=== PATIENT | female | born 1995 | race Caucasian/White ===

== ENCOUNTER 2017-08-29 10:59 | Emergency (ER) | payer OTHER ==
--- NOTE | 2017-08-29 12:39 | ER Document Report ---
HPI - HPI Pain Level: 4 Context: 21 yo female 15wk c/o flu like symptoms x 2 days. chills, body aches, cough, nausea. denies abdominal pain, vaginal bleeding or other related complaints Associated Symptoms: Body/muscle aches, Chills, Nonproductive cough, Earache, Nausea, Weakness. denies: Vomiting, Shortness of breath Exacerbated by: Denies Relieved by: Denies Similar symptoms previously: No Recently seen / treated by doctor: No Past Medical History - General Information source: Patient - Social History Smoking Status: Never Smoker Frequency of alcohol use: None Drug Abuse: None Lives with: Family Family History: Reviewed & Not Pertinent - Medical History Medical History: Negative Vertical Provider Document - CONSTITUTIONAL Agree With Documented VS: Yes Exam Limitations: No Limitations - INFECTION CONTROL TRAVEL OUTSIDE OF THE [place] IN LAST 30 DAYS: No - HEENT HEENT: Atraumatic, PERRLA - NECK Neck: Normal Inspection, Supple - RESPIRATORY Respiratory: Breath Sounds Normal, No Respiratory Distress O2 Sat by Pulse Oximetry: 100 - GI/ABDOMEN Gastrointestinal: Abdomen Soft, Abdomen Non-Tender - MUSCULOSKELETAL/EXTREMETIES Musculoskeletal/Extremeties: MAEW - NEURO Level of Consciousness: Awake, Alert, Appropriate - DERM Integumentary: Warm, Dry, No Rash Course - Re-evaluation Re-evalutation: 08/29/17 12:43 H&P c/w viral illlness with no signs of sepsis or respiratory distress. will treat with course of Tamiflu and symptomatic support. pt stable for discharge and agreeable with plan - Vital Signs Vital signs: Temp Pulse Resp BP Pulse Ox 98.8 F 119 H 20 125/61 100 08/29/17 11:25 08/29/17 11:25 08/29/17 11:25 08/29/17 11:25 08/29/17 11:25 Discharge - Discharge Clinical Impression: Flu-like symptoms Condition: Stable Disposition: HOME, SELF-CARE Instructions: Antinausea Medication ([facility]) Additional Instructions: Tamiflu as prescribed rest increase hydration anti nausea medication as prescribed May take OTC Mucinex, Delsym for cough control social isolation while sick good hand washing clorox wipes to common surfaces followup with your OB tomorrow Prescriptions: Oseltamivir Phosphate [Tamiflu 75 mg Capsule] 75 mg PO BID #10 capsule Promethazine HCl [Phenergan 25 mg Tablet] 25 mg PO Q6H PRN #15 tablet PRN Reason:
[2017-08-29 13:33] VITALS: BP 117/60
== END 2017-08-29 13:35 | disposition home or self-care (01) ==
LOC: ER 10:59
DX: O26.92 Pregnancy related conditions, unspecified, second trimester (principal); M79.1 Myalgia; R05 Cough; R11.0 Nausea; Z3A.15 15 weeks gestation of pregnancy
CPT/HCPCS: 99283

== ENCOUNTER 2018-03-07 09:48 | Emergency (ER) | payer OTHER ==
[2018-03-07 10:00] VITALS: BP 134/83
--- NOTE | 2018-03-07 10:53 | ER Document Report ---
ED General - General Chief Complaint: Blood Pressure Problem Stated Complaint: BLOOD PRESSURE ISSUE Time Seen by Provider: 03/07/18 10:41 Notes: Chief complaint: Rash, right arm numbness, elevated blood pressure History of complain:( obtained from----patient) 22 years old female 13 days , induced for preeclampsia, discharge blood pressure was 140 , it gradually came down to 130/80. Having itchy sensation and pimple-like rash over the left side of the neck and lower back. Otherwise denies any headache blurring of vision focal weakness numbness tingling sensation. No constitutional symptoms Onset: As above Duration: As above Severity: Mild Quality: Itchy Context: Unknown Exacerbating factor and relieving factors: Unknown REVIEW OF SYSTEMS: CONSTITUTIONAL : Denies fever, chills, or sweats. Denies recent illness. EENT: Denies eye, ear, throat, or mouth pain or symptoms. Denies nasal or sinus congestion or discharge. Denies throat, tongue, or mouth swelling or difficulty swallowing. CARDIOVASCULAR: Denies chest pain. Denies palpitations or racing or irregular heart beat. Denies ankle edema. RESPIRATORY: Denies cough, cold, or chest congestion. Denies shortness of breath, difficulty breathing, or wheezing. GASTROINTESTINAL: Denies distention. Denies nausea, vomiting, or diarrhea. Denies blood in vomitus, stools, or per rectum. Denies black, tarry stools. Denies constipation. GENITOURINARY: Denies difficulty urinating, painful urination, burning, frequency, blood in urine, or discharge. FEMALE GENITOURINARY: Denies vaginal bleeding, heavy or abnormal periods, irregular periods. Denies vaginal discharge or odor. MUSCULOSKELETAL: Denies back or neck pain or stiffness. Denies joint pain or swelling. SKIN: Denies rash, lesions or sores. HEMATOLOGIC : Denies easy bruising or bleeding. LYMPHATIC: Denies swollen, enlarged glands. NEUROLOGICAL: Denies confusion or altered mental status. Denies passing out or loss of consciousness. Denies dizziness or lightheadedness. Denies headache. Denies weakness or paralysis or loss of use of either side. Denies problems with gait or speech. Denies sensory loss, numbness, or tingling. Denies seizures. PSYCHIATRIC: Denies anxiety or stress. Denies depression, suicidal ideation, or homicidal ideation. ALL OTHER SYSTEMS REVIEWED AND NEGATIVE. PHYSICAL EXAMINATION: GENERAL: Well-appearing, well-nourished and in no acute distress. HEAD: Atraumatic, normocephalic. EYES: Pupils equal round and reactive to light, extraocular movements intact, conjunctiva are normal. ENT: Nares patent, oropharynx clear without exudates. Moist mucous membranes. NECK: Normal range of motion, supple without lymphadenopathy LUNGS: Breath sounds clear to auscultation bilaterally and equal. No wheezes rales or rhonchi. HEART: Regular rate and rhythm without murmurs ABDOMEN: Soft, nontender, nondistended abdomen. No guarding, no rebound. No masses appreciated. Examination of genitals-deferred Musculoskeletal: Normal range of motion, no pitting or edema. No cyanosis. NEUROLOGICAL: Cranial nerves grossly intact. Normal speech, normal gait. Normal sensory, motor exams PSYCH: Normal mood, normal affect. SKIN: Multiple pimple-like lesions noted over the left side of the neck and lower back. Dictation was performed using [employer] voice recognition software TRAVEL OUTSIDE OF THE [place] IN LAST 30 DAYS: No - HPI Notes: Dictated - Related Data Allergies/Adverse Reactions: No Known Allergies Allergy (Unverified 08/29/17 11:05) Past Medical History - Social History Smoking Status: Never Smoker Chew tobacco use (# tins/day): No Frequency of alcohol use: Occasional Lives with: Family Family History: Reviewed & Not Pertinent Patient has suicidal ideation: No Patient has homicidal ideation: No Renal/ Medical History: Denies: Hx Peritoneal Dialysis Review of Systems - Review of Systems Notes: Dictated Physical Exam - Vital signs Vitals: Temp Pulse Resp BP Pulse Ox 98.3 F 83 20 134/83 H 99 03/07/18 09:58 03/07/18 09:58 03/07/18 09:58 03/07/18 09:58 03/07/18 09:58 - Notes Notes: Dictated Course - Vital Signs Vital signs: Temp Pulse Resp BP Pulse Ox 98.3 F 83 20 134/83 H 99 03/07/18 09:58 03/07/18 09:58 03/07/18 09:58 03/07/18 09:58 03/07/18 09:58 - Laboratory Result Diagrams: 03/07/18 11:02 Laboratory results interpreted by me: 03/07/18 03/07/18 11:02 11:25 Eosinophils % 7.8 H ESR 31 H Urine Protein 30 H Urine Urobilinogen 2.0 H Ur Leukocyte Esterase LARGE H Urine Ascorbic Acid 40 H Discharge - Discharge Clinical Impression: Itching UTI (urinary tract infection) Qualifiers: Urinary tract infection type: acute cystitis Hematuria presence: without hematuria Qualified Code(s): N30.00 - Acute cystitis without hematuria Acne Qualifiers: Acne type: other acne Qualified Code(s): L70.8 - Other acne Condition: Fair Disposition: HOME, SELF-CARE Instructions: Urinary Tract Infection, Child ([facility]), Acne ([facility]) Prescriptions: Cephalexin Monohydrate [Keflex 500 mg Capsule] 500 mg PO Q6H 5 Days capsule Mupirocin [Bactroban 2% Ointment 22 gm] 22 applic TP TID #1 tube
[2018-03-07 11:21] LABS: ABSOLUTE BASOPHILS # (AUTO) 0.1 10^3/uL (0.0-0.2); ABSOLUTE EOSINOPHILS # (AUTO) 0.6 10^3/uL (0.0-0.6); ABSOLUTE LYMPHOCYTES (AUTO) 1.5 10^3/uL (0.5-4.7); ABSOLUTE MONOCYTES (AUTO) 0.3 10^3/uL (0.1-1.4); ABSOLUTE NEUT (AUTO) 4.8 10^3/uL (1.7-8.2); BASOPHILS % (AUTO) 1.2 % (0-2); EOSINOPHILS % (AUTO) 7.8 % (0-6); HEMATOCRIT 42.1 % (36.0-47.0); HEMOGLOBIN 14.3 g/dL (12.0-15.5); MEAN CORPUSCULAR HEMOGLOBIN 27.5 pg (27.0-33.4); MEAN CORPUSCULAR VOLUME 81 fl (80-97); MONOCYTES % (AUTO) 4.4 % (3-13); PLATELET COUNT 354 10^3/uL (150-450); RED CELL DISTRIBUTION WIDTH 13.3 % (11.5-14.0); SEGMENTED NEUTROPHILS % (AUTO) 65.6 % (42-78); TOTAL CELLS COUNTED % (AUTO) 100 %; WHITE BLOOD COUNT 7.3 10^3/uL (4.0-10.5)
[2018-03-07 11:50] LABS: APPEARANCE,URINE CLOUDY; BILIRUBIN,URINE NEGATIVE (NEGATIVE); GLUCOSE, URINE NEGATIVE (NEGATIVE); KETONES,URINE NEGATIVE (NEGATIVE); LEUKOCYTE ESTERASE,URINE LARGE (NEGATIVE); NITRITE,URINE NEGATIVE (NEGATIVE); PROTEIN,URINE 30 mg/dL (NEGATIVE); URINE SPECIFIC GRAVITY 1.027
[2018-03-07 11:52] LABS: COLOR,URINE YELLOW
[2018-03-07 12:01] LABS: ERYTHROCYTE SEDIMENTATION RATE 31 mm/hr (0-20)
== END 2018-03-07 12:10 | disposition home or self-care (01) ==
LOC: ER 09:48
DX: O86.20 Urinary tract infection following delivery, unspecified (principal); L29.9 Pruritus, unspecified; L70.8 Other acne; R03.0 Elevated blood-pressure reading, without diagnosis of hypertension; R20.0 Anesthesia of skin
CPT/HCPCS: 36415; 81001; 85025; 85652; 99283

== ENCOUNTER 2018-03-09 17:01 | Emergency (ER) | payer OTHER ==
[2018-03-09 17:09] VITALS: BP 142/88
--- NOTE | 2018-03-09 17:24 | ER Document Report ---
ED Medical Screen (RME) - General Chief Complaint: OB Problem (>20wk) Stated Complaint: ITCHING/HAND NUMBNESS Time Seen by Provider: 03/09/18 17:22 Mode of Arrival: Ambulatory Information source: Patient Notes: This is a 22-year-old well-appearing female 15 days who was induced because of preeclampsia. Patient states towards the end of her she had elevated blood pressure and a transaminitis. She delivered a healthy girl by ([facility]). She was evaluated a few days ago in the emergency room for an itchy rash and was given topical cream as well as 5 days of Keflex for UTI. Her other medicines include iron and magnesium. She presents with worsening itching as well as rash and intermittent right upper quadrant discomfort. TRAVEL OUTSIDE OF THE [place] IN LAST 30 DAYS: No - Related Data Allergies/Adverse Reactions: No Known Allergies Allergy (Verified 03/09/18 17:03) Past Medical History - Social History Frequency of alcohol use: Occasional Drug Abuse: None Renal/ Medical History: Denies: Hx Peritoneal Dialysis Physical Exam - Vital signs Vitals: Temp Pulse Resp BP Pulse Ox 98.0 F 67 16 142/88 H 99 03/09/18 17:07 03/09/18 17:07 03/09/18 17:07 03/09/18 17:07 03/09/18 17:07 Course - Vital Signs Vital signs: Temp Pulse Resp BP Pulse Ox 98.0 F 67 16 142/88 H 99 03/09/18 17:07 03/09/18 17:07 03/09/18 17:07 03/09/18 17:07 03/09/18 17:07
[2018-03-09 18:09] LABS: ALANINE AMINOTRANSFERASE 29 U/L (9-52); ALBUMIN 4.5 g/dL (3.5-5.0); ALKALINE PHOSPHATASE 124 U/L (38-126); ANION GAP 15 (5-19); ASPARTATE AMINO TRANSFERASE 35 U/L (14-36); BILIRUBIN,DIRECT 0.3 mg/dL (0.0-0.4); BILIRUBIN,TOTAL 0.4 mg/dL (0.2-1.3); BLOOD UREA NITROGEN 17 mg/dL (7-20); CARBON DIOXIDE 26 mmol/L (22-30); CHLORIDE 102 mmol/L (98-107); GLUCOSE 75 mg/dL (75-110); SODIUM 142.5 mmol/L (137-145)
--- NOTE | 2018-03-09 18:39 | RADIOLOGY REPORT (SQ) ---
EXAM DESCRIPTION: U/S ABDOMEN LIMITED W/O DOP COMPLETED DATE/TIME: 03/09/2018 6:20 pm REASON FOR STUDY: ruq ultrasound:ruq pain COMPARISON: None. TECHNIQUE: Dynamic and static grayscale images acquired of the abdomen and recorded on PACS. Additio nal selected color Doppler and spectral images recorded. LIMITATIONS: None. FINDINGS: PANCREAS: No masses. Visualized pancreatic duct normal caliber. LIVER: No masses. Echotexture normal. LIVER VASCULATURE: Normal directional flow of the main portal vein and hepatic veins. GALLBLADDER: No stones. Normal wall thickness. No pericholecystic fluid. ULTRASOUND-DETECTED TAYLOR'S SIGN: Negative. INTRAHEPATIC DUCTS AND COMMON DUCT: CBD and intrahepatic ducts normal caliber. No filling defects. INFERIOR VENA CAVA: Normal flow. AORTA: No aneurysm. RIGHT KIDNEY: Normal size. Normal echogenicity. No solid or suspicious masses. No hydronephrosis. No calcifications. PERITONEAL AND RIGHT PLEURAL SPACE: No ascites or effusions. OTHER: No other significant findings. IMPRESSION: NORMAL RIGHT UPPER QUADRANT ULTRASOUND. TECHNICAL DOCUMENTATION: JOB ID: [id number] [employer]- All Rights Reserved Reading location - IP/workstation name: [email or web address]
[2018-03-09] MEDS ORDERED: CETIRIZINE 10 MG TABLET PO ONE (18:52)
--- NOTE | 2018-03-09 18:59 | ER Document Report ---
ED General - General Chief Complaint: OB Problem (>20wk) Stated Complaint: ITCHING/HAND NUMBNESS Time Seen by Provider: 03/09/18 17:22 Mode of Arrival: Ambulatory Notes: Patient is a 22-year-old female 16 days after being induced for preeclampsia and elevated LFTs who presents complaining of generalized itching. She was seen several days ago for the same, prescribed a topical steroid cream which she reports has provided no relief. She describes it as a migratory area of pruritus with associated raised erythematous lesions to the areas of pruritus. She denies a history of similar symptoms in the past. She denies any shortness of breath, wheezing, vomiting, diarrhea or abdominal cramping. She has not yet seen her primary doctor regarding today's concerns. She has no previous history of allergies. TRAVEL OUTSIDE OF THE [place] IN LAST 30 DAYS: No - Related Data Allergies/Adverse Reactions: No Known Allergies Allergy (Verified 03/09/18 17:03) Past Medical History - General Information source: Patient - Social History Smoking Status: Never Smoker Frequency of alcohol use: Occasional Drug Abuse: None Lives with: Spouse/Significant other Family History: Reviewed & Not Pertinent Patient has suicidal ideation: No Patient has homicidal ideation: No Renal/ Medical History: Denies: Hx Peritoneal Dialysis Review of Systems - Review of Systems Notes: Constitutional: Negative for fever. Positive pruritus HENT: Negative for sore throat. Eyes: Negative for visual changes. Cardiovascular: Negative for chest pain. Respiratory: Negative for shortness of breath. Gastrointestinal: Negative for abdominal pain, vomiting or diarrhea. Genitourinary: Negative for dysuria. Musculoskeletal: Negative for back pain. Skin: Positive for rash. Neurological: Negative for headaches, weakness or numbness. 10 point ROS negative except as marked above and in HPI. Physical Exam - Vital signs Vitals: Temp Pulse Resp BP Pulse Ox 98.0 F 67 16 142/88 H 99 03/09/18 17:07 03/09/18 17:07 03/09/18 17:07 03/09/18 17:07 03/09/18 17:07 Interpretation: Normal Notes: PHYSICAL EXAMINATION: GENERAL: Well-appearing, well-nourished and in no acute distress. HEAD: Atraumatic, normocephalic. EYES: Pupils equal round and reactive to light, extraocular movements intact, sclera anicteric, conjunctiva are normal. ENT: nares patent, oropharynx clear without exudates. Moist mucous membranes. NECK: Normal range of motion, supple without lymphadenopathy LUNGS: Breath sounds clear to auscultation bilaterally and equal. No wheezes rales or rhonchi. HEART: Regular rate and rhythm without murmurs ABDOMEN: Soft, nontender, normoactive bowel sounds. No guarding, no rebound. No masses appreciated. EXTREMITIES: Normal range of motion, no pitting or edema. No cyanosis. NEUROLOGICAL: No focal neurological deficits. Moves all extremities spontaneously and on command. PSYCH: Normal mood, normal affect. SKIN: Warm, Dry, normal turgor, several scattered areas of raised, erythematous lesions on the bilateral antecubital fossae and over her low back. Course - Re-evaluation Re-evalutation: 03/09/18 18:52 Patient presents with intermittent, migratory areas of urticaria that have been ongoing since 1 week . Patient does have several scattered areas of raised, erythematous lesions on the bilateral antecubital fossae and over her low back. She has been using topical steroid cream no symptoms to suggest acute anaphylaxis. No obvious trigger for her symptoms. Prescribed during her most recent visit without any relief. No evidence of cholestasis based on normal LFTs, normal bilirubin level, normal right upper quadrant ultrasound. I will start the patient on antihistamines as she is not breast-feeding no risk of loss of supply. I also prescribed steroids that she can initiate if the cetirizine is not working. I recommended follow-up with allergy and immunology for formal allergy testing if her symptoms do persist. At this time will discharge with return precautions and follow-up recommendations. Verbal discharge instructions given a the bedside and opportunity for questions given. Medication warnings reviewed. Patient is in agreement with this plan and has verbalized understanding of return precautions and the need for primary care follow-up in the next 24-72 hours. - Vital Signs Vital signs: Temp Pulse Resp BP Pulse Ox 98.0 F 67 16 142/88 H 99 03/09/18 17:07 03/09/18 17:07 03/09/18 17:07 03/09/18 17:07 03/09/18 17:07 - Laboratory Result Diagrams: 03/09/18 17:37 Discharge - Discharge Clinical Impression: Itching, Rash and nonspecific skin eruption Disposition: HOME, SELF-CARE Additional Instructions: You were seen today for hives. This can be either allergic, autoimmune, or environmental in origin. You can continue to take cetirizine 10mg up to 3 times daily as needed for itching. If this does not resolve your skin lesions and itching after 2 days, begin the steroids that have been prescribed. IF YOU DEVELOP DIFFICULTY BREATHING, SPREADING OF HIVES, VOMITING, LIGHTHEADEDNESS, IMMEDIATELY AND CALL 911. Please follow-up with your primary care physician in the next 1-2 days. They may wish to consider formal allergy testing to further clarify why you continue to have these symptoms. Your labs and ultrasound are normal today. Prescriptions: Prednisone [Deltasone 20 mg Tablet] 3 tab PO DAILY 5 Days tablet
== END 2018-03-09 19:01 | disposition home or self-care (01) ==
LOC: ER 17:01
DX: O99.73 Diseases of the skin and subcutaneous tissue complicating the puerperium (principal); L50.9 Urticaria, unspecified
CPT/HCPCS: 36415; 76705; 80053; 99284

== ENCOUNTER 2019-01-29 23:31 | Emergency (ER) | payer OTHER ==
--- NOTE | 2019-01-30 00:24 | ER Document Report ---
HPI - HPI Time Seen by Provider: 01/30/19 00:09 Pain Level: 3 Context: Patient is a 23-year-old female that comes to the emergency department for chief complaint of cough for the past 3 to 4 weeks. She states she has had congestion, postnasal drainage, but her cough is significantly worse now. She states she almost coughed until she threw up. She states pain with cough is significantly increased. She denies difficulty breathing, fever/chills. Her daughter had similar symptoms. Patient is taking her daily medications. She denies any past medical history including asthma, denies ever smoking. - REPRODUCTIVE Reproductive: DENIES: : Past Medical History - General Information source: Patient - Social History Smoking Status: Never Smoker Frequency of alcohol use: None Drug Abuse: None Lives with: Family Family History: Reviewed & Not Pertinent - Medical History Medical History: Negative Renal/ Medical History: Denies: Hx Peritoneal Dialysis Surgical Hx: Negative - Immunizations Immunizations up to date: Yes Hx Diphtheria, Pertussis, Tetanus Vaccination: Yes Vertical Provider Document - CONSTITUTIONAL General Appearance: WD/WN, No Apparent Distress - INFECTION CONTROL TRAVEL OUTSIDE OF THE [place] IN LAST 30 DAYS: No - HEENT HEENT: Atraumatic, Normocephalic. negative: Normal ENT Exam - Very mild nasal congestion, small amount of fluid behind the right tympanic membrane, minimal erythema of the posterior pharynx. Normal ENT exam otherwise. - NECK Neck: Normal Inspection. negative: Lymphadenopathy-Left, Lymphadenopathy-Right - RESPIRATORY Respiratory: Breath Sounds Normal, No Respiratory Distress, Other - Frequent cough, however lungs are clear, no tachypnea, no signs of distress - CARDIOVASCULAR Cardiovascular: Regular Rate, Regular Rhythm - GI/ABDOMEN Gastrointestinal: Abdomen Soft, Abdomen Non-Tender - BACK Back: Normal Inspection - MUSCULOSKELETAL/EXTREMETIES Musculoskeletal/Extremeties: MAEW, FROM, Non-Tender - NEURO Level of Consciousness: Awake, Alert, Appropriate Motor/Sensory: No Motor Deficit, No Sensory Deficit - DERM Integumentary: Warm, Dry, No Rash Course - Re-evaluation Re-evalutation: Lungs are clear, no hypoxia. Chest x-ray without acute findings. Physical examination is most consistent with initial upper respiratory virus and now bronchitis. Discussed with patient, discussed options. Provided with tapering prednisone, decongestants/antihistamines, Tessalon. Discussed follow-up and return precautions. Patient states understanding and agreement. Stable at time of discharge. - Vital Signs Vital signs: Temp Pulse Resp BP Pulse Ox 97.9 F 89 18 136/90 H 97 01/29/19 23:42 01/29/19 23:42 01/29/19 23:42 01/29/19 23:42 01/29/19 23:42 Discharge - Discharge Clinical Impression: Cough Upper respiratory infection Qualifiers: URI type: unspecified URI Qualified Code(s): J06.9 - Acute upper respiratory infection, unspecified Condition: Stable Disposition: HOME, SELF-CARE Additional Instructions: Your evaluation is consistent with most likely viral illness initially and now bronchitis (inflammation of the upper airway). The chest x-ray is normal. Your evaluation is reassuring otherwise. I recommend the prednisone as prescribed (avoid carbohydrates while taking or this can cause increased sugars and weight gain), the cetirizine, and the Flonase nasal spray, the Tessalon for cough. Symptoms should gradually resolve. Return if you worsen including difficulty breathing, spiking fever, passing out, or any other concerning symptoms. Prescriptions: Benzonatate [Tessalon [place] 100 mg Capsule] 100 mg PO Q8HP PRN #20 cap PRN Reason: Cetirizine HCl [24Hour Allergy] 10 mg PO DAILY #30 tablet Fluticasone Propionate [Flonase Nasal [place] 50 Mcg/[place] 16 gm] 2 sprays NASL Q12 #1 inhaler Prednisone [Deltasone 10 mg Tablet] 10 mg PO ASDIR PRN #21 tablet PRN Reason:
--- NOTE | 2019-01-30 00:55 | RADIOLOGY REPORT (SQ) ---
EXAM DESCRIPTION: X-ray two view chest. CLINICAL HISTORY: 23 years Female, worsening cough and pain, cough x 4 weeks COMPARISON: None. TECHNIQUE: PA and Lateral views of the chest performed on 01/30/2019 at 12:47 AM FINDINGS: The lungs are well expanded and are clear. The costophrenic sulci are clear. There is no evidence of a pneumothorax. The cardiac silhouette is normal in size. The mediastinal contours are normal. No acute osseous abnormalities are identified. No focal soft tissue abnormalities are identified. IMPRESSION: No evidence of acute intrathoracic disease.
[2019-01-30] MEDS ORDERED: BENZONATATE 100 MG CAPSULE PO ONE (01:11)
[2019-01-30 01:33] VITALS: BP 131/81
== END 2019-01-30 01:33 | disposition home or self-care (01) ==
LOC: ER 23:31
DX: J06.9 Acute upper respiratory infection, unspecified (principal); R11.10 Vomiting, unspecified
CPT/HCPCS: 71046; 99283

== ENCOUNTER 2019-06-14 17:33 | Emergency (ER) | payer OTHER ==
--- NOTE | 2019-06-14 17:52 | ER Document Report ---
ED Medical Screen (RME) - General Chief Complaint: Chest Pressure Stated Complaint: CHEST PRESSURE Time Seen by Provider: 06/14/19 17:49 Mode of Arrival: Ambulatory Information source: Patient Notes: 23-year-old female presented to ED for complaint of chest pain with esophageal pain all the way down to the upper abdomen for 5 days. She states for the first couple days she thought it was just indigestion but the pain is gotten much worse. She states her last menstrual cycle was about a month ago does not know if she is . States she is on control. She states she does not smoke she does drink on the weekends no use of drugs. States her last alcohol was a couple weeks ago. She does occasionally get nauseated but no vomiting she states she is also had some diarrhea the last 3 days. I have greeted and performed a rapid initial assessment of this patient. A comprehensive ED assessment and evaluation of the patient, analysis of test results and completion of medical decision making process will be conducted by an additional ED providers. TRAVEL OUTSIDE OF THE [place] IN LAST 30 DAYS: No - Related Data Allergies/Adverse Reactions: No Known Allergies Allergy (Verified 03/09/18 17:03) Past Medical History Renal/ Medical History: Denies: Hx Peritoneal Dialysis Past Surgical History: Reports: Hx Breast Surgery - Immunizations Immunizations up to date: Yes Hx Diphtheria, Pertussis, Tetanus Vaccination: Yes
--- NOTE | 2019-06-14 18:28 | RADIOLOGY REPORT (SQ) ---
EXAM DESCRIPTION: CHEST 2 VIEWS COMPLETED DATE/TIME: 06/14/2019 6:13 pm REASON FOR STUDY: chest pain/upper abdoment pain nausea diarrhea COMPARISON: 01/30/2019 EXAM PARAMETERS: NUMBER OF VIEWS: two views TECHNIQUE: Digital Frontal and Lateral radiographic views of the chest acquired. RADIATION DOSE: NA LIMITATIONS: none FINDINGS: LUNGS AND PLEURA: No opacities, masses or pneumothorax. No pleural effusion. MEDIASTINUM AND HILAR STRUCTURES: No masses or contour abnormalities. HEART AND VASCULAR STRUCTURES: Heart normal size. No evidence for failure. BONES: No acute findings. HARDWARE: None in the chest. OTHER: No other significant finding. IMPRESSION: No acute abnormality of the lungs. No focal airspace opacity. TECHNICAL DOCUMENTATION: JOB ID: [id number] [employer]- All Rights Reserved Reading location - IP/workstation name: [email or web address]
[2019-06-14 18:39] LABS: ABSOLUTE EOSINOPHILS # (AUTO) 0.2 10^3/uL (0.0-0.6); ABSOLUTE MONOCYTES (AUTO) 0.5 10^3/uL (0.1-1.4); ABSOLUTE NEUT (AUTO) 4.1 10^3/uL (1.7-8.2); BASOPHILS % (AUTO) 0.3 % (0-2); EOSINOPHILS % (AUTO) 3.1 % (0-6); HEMATOCRIT 39.8 % (36.0-47.0); HEMOGLOBIN 13.9 g/dL (12.0-15.5); LYMPHOCYTES % (AUTO) 17.5 % (13-45); MEAN CORPUSCULAR HGB CONC 34.9 g/dL (32.0-36.0); MEAN CORPUSCULAR VOLUME 80 fl (80-97); MONOCYTES % (AUTO) 8.6 % (3-13); PLATELET COUNT 226 10^3/uL (150-450); RED BLOOD COUNT 4.95 10^6/uL (3.72-5.28); RED CELL DISTRIBUTION WIDTH 12.5 % (11.5-14.0); SEGMENTED NEUTROPHILS % (AUTO) 70.5 % (42-78); TOTAL CELLS COUNTED % (AUTO) 100 %; WHITE BLOOD COUNT 5.8 10^3/uL (4.0-10.5)
[2019-06-14] MEDS ORDERED: LIDOCAINE 2% VISCOUS SOLN 20 ML UDCUP PO ONE (18:44)
[2019-06-14] MEDS ORDERED: METOCLOPRAMIDE HCL ORAL SOLN 10 MG/10 ML UDCUP PO ONE (18:44)
[2019-06-14] MEDS ORDERED: MAG HYDROX/AL HYDROX/SIMETH SUSP 30 ML UDCUP PO ONE (18:44)
--- NOTE | 2019-06-14 18:45 | ER Document Report ---
ED General - General Chief Complaint: Chest Pain Stated Complaint: CHEST PRESSURE Time Seen by Provider: 06/14/19 17:49 Primary Care Provider: EUGENIE PADILLA DO [Primary Care Provider] - Follow up in 3-5 days Mode of Arrival: Ambulatory Information source: Patient Notes: 23-year-old female presents emergency department with complaints of chest pain that goes down her esophagus to her upper abdomen for the past 5 days. Reports increased pain when she drinks water or eats food. Denies fever complains of nausea that comes and goes and reports diarrhea once to twice a day for the past couple days. Denies pain with void denies vaginal discharge. Reports she does have some chills. Reports she went to [facility] 2 days ago for the same symptoms. She was prescribed probiotics. She was also instructed she had heartburn. She reports symptoms continued. TRAVEL OUTSIDE OF THE [place] IN LAST 30 DAYS: No - HPI Onset: Other - 5 days Onset/Duration: Persistent Quality of pain: Achy Associated symptoms: Diarrhea, Nausea Exacerbated by: Denies Relieved by: Denies Similar symptoms previously: Yes Recently seen / treated by doctor: Yes - Related Data Allergies/Adverse Reactions: No Known Allergies Allergy (Verified 03/09/18 17:03) Home Medications: control, lexapro Past Medical History - General Information source: Patient Last Menstrual Period: 1 month ago - Social History Smoking Status: Never Smoker Chew tobacco use (# tins/day): No Frequency of alcohol use: Social Drug Abuse: None 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 Lives with: Family Family History: Reviewed & Not Pertinent Patient has suicidal ideation: No Patient has homicidal ideation: No - Medical History Medical History: Negative Renal/ Medical History: Denies: Hx Peritoneal Dialysis Past Surgical History: Reports: Hx Breast Surgery - Breast augmentation - Immunizations Immunizations up to date: Yes Hx Diphtheria, Pertussis, Tetanus Vaccination: Yes Review of Systems - Review of Systems Notes: Review HPI for review of systems., All other systems negative Physical Exam - Vital signs Vitals: Temp Pulse Resp BP Pulse Ox 97.9 F 86 20 141/84 H 100 06/14/19 17:47 06/14/19 17:47 06/14/19 17:47 06/14/19 17:47 06/14/19 17:47 - General General appearance: Appears well, Alert In distress: None - HEENT Head: Normocephalic Eyes: Normal Conjunctiva: Normal Extraocular movements intact: Yes Eyelashes: Normal Pupils: PERRL Ears: Normal External canal: Normal Tympanic membrane: Normal Nasal: Normal Mucous membranes: Normal, Moist Pharynx: Normal. No: Erythema, Peritonsillar abscess, Tonsillar hypertrophy Neck: Normal, Supple. No: Lymphadenopathy - Respiratory Respiratory status: No respiratory distress Chest status: Nontender Breath sounds: Normal Chest palpation: Normal - Cardiovascular Rhythm: Regular Heart sounds: Normal auscultation Murmur: No - Abdominal Inspection: Normal Distension: No distension Bowel sounds: Normal Tenderness: Tender - Epigastric area tender to palpate Organomegaly: No organomegaly Adult front & back diagram: 1 - Reports area tender to palpate - Back Back: Normal. No: Tender, CVA tenderness - Extremities General upper extremity: Normal ROM General lower extremity: Normal ROM - Neurological Neuro grossly intact: Yes Cognition: Normal Orientation: AAOx4 [place] Coma Scale Eye Opening: Spontaneous Jesse Coma Scale Verbal: Oriented Jesse Coma Scale Motor: Obeys Commands Jesse Coma Scale Total: 15 Speech: Normal - Psychological Associated symptoms: Normal affect, Normal mood - Skin Skin Temperature: Warm Skin Moisture: Dry Skin Color: Normal Course - Re-evaluation Re-evalutation: 06/14/19 19:09 23-year-old female presents with epigastric pain that radiates into her chest for the past 5 days. Suspected possible cholecystitis, labs unremarkable ultrasound negative. Patient was prescribed GI cocktail. 06/14/19 19:10 Patient reports the GI cocktail did not help that much. Made her throat feel numb. She was instructed on monitoring her eating while her throat is known for possible aspiration and choking. She verbalized understanding. Patient was also instructed on all results. Instructed on diet, antacid as indicated and continue to take probiotics prescribed by the [facility]. She was also instructed to follow-up with her primary care provider for referral to GI as indicated. She verbalized understanding to all instructions. Abdomen Ultrasound 06/14/19 17:53 IMPRESSION: NO ACUTE FINDINGS. Chest X-Ray 06/14/19 17:53 IMPRESSION: No acute abnormality of the lungs. No focal airspace opacity. 06/14/19 17:55 06/14/19 17:55 MCV 80 fl (80-97) 06/14/19 17:55 MCH 28.0 pg (27.0-33.4) 06/14/19 17:55 MCHC 34.9 g/dL (32.0-36.0) 06/14/19 17:55 RDW 12.5 % (11.5-14.0) 06/14/19 17:55 Seg Neutrophils % 70.5 % (42-78) 06/14/19 17:55 Chloride 101 mmol/L (98-107) 06/14/19 17:55 Carbon Dioxide 25 mmol/L (22-30) 06/14/19 17:55 Anion Gap 13 (5-19) 06/14/19 17:55 Est GFR ( Amer) > 60 (>60) 06/14/19 17:55 Glucose 97 mg/dL (75-110) 06/14/19 17:55 Calcium 9.4 mg/dL (8.4-10.2) 06/14/19 17:55 Total Bilirubin 0.5 mg/dL (0.2-1.3) 06/14/19 17:55 AST 42 U/L (14-36) H 06/14/19 17:55 Alkaline Phosphatase 83 U/L (38-126) 06/14/19 17:55 Total Protein 8.1 g/dL (6.3-8.2) 06/14/19 17:55 Albumin 4.6 g/dL (3.5-5.0) 06/14/19 17:55 Lipase 46.7 U/L (23-300) 06/14/19 17:55 Serum HCG, Qual NEGATIVE (NEGATIVE) 06/14/19 17:55 Urine Color STRAW 06/14/19 17:55 Urine Appearance CLEAR 06/14/19 17:55 Urine pH 8.0 (5.0-9.0) 06/14/19 17:55 Ur Specific [place] 1.003 06/14/19 17:55 Urine Protein NEGATIVE mg/dL (NEGATIVE) 06/14/19 17:55 Urine Glucose (UA) NEGATIVE mg/dL (NEGATIVE) 06/14/19 17:55 Urine Ketones NEGATIVE mg/dL (NEGATIVE) 06/14/19 17:55 Urine Blood SMALL (NEGATIVE) H 06/14/19 17:55 Urine RBC (Auto) 3 /HPF 06/14/19 17:55 - Vital Signs Vital signs: Temp Pulse Resp BP Pulse Ox 98.1 F 80 16 137/56 H 100 06/14/19 19:26 06/14/19 19:26 06/14/19 19:26 06/14/19 19:26 06/14/19 19:26 - Laboratory Result Diagrams: 06/14/19 17:55 06/14/19 17:55 Laboratory results interpreted by me: 06/14/19 06/14/19 17:55 17:55 AST 42 H Urine Blood SMALL H - Diagnostic Test Radiology reviewed: Image reviewed, Reports reviewed - EKG Interpretation by Me EKG shows normal: Sinus rhythm Rate: Normal Rhythm: NSR Additional EKG results interpreted by me: 06/14/19 19:[address] elevation Discharge - Discharge Clinical Impression: Abdominal pain, epigastric Chest pain Qualifiers: Chest pain type: unspecified Qualified Code(s): R07.9 - Chest pain, unspecified Condition: Stable Disposition: HOME, SELF-CARE Instructions: Abdominal Pain ([facility]), Antacid Therapy ([facility]), Chest Pain of Unclear Cause ([facility]), Evaluation of Upper Abdominal Pain ([facility]), Gastroenterology, Reflux Disease (GERD) ([facility]) Additional Instructions: *You have been evaluated for abdominal gastric pain, chest pain Your labs were unremarkable today. Your symptoms may be caused by gastroesophageal reflux disease Monitor your diet avoid spicy foods. *Take medication as prescribed, antacid as indicated *Follow up with a primary care provider within 1 week for referral to gastroen terology as indicated *Return to ED for worsening condition, changes, needs *Return to ED if not better in 24 hours Referrals: EUGENIE PADILLA, [Primary Care Provider] - Follow up in 3-5 days
--- NOTE | 2019-06-14 18:54 | RADIOLOGY REPORT (SQ) ---
EXAM DESCRIPTION: U/S ABDOMEN LIMITED W/O DOP COMPLETED DATE/TIME: 06/14/2019 6:13 pm REASON FOR STUDY: chest pain/upper abdoment pain nausea diarrhea COMPARISON: None. TECHNIQUE: Dynamic and static grayscale images acquired of the abdomen and recorded on PACS. Additio jonathan selected color Doppler and spectral images recorded. LIMITATIONS: None. FINDINGS: PANCREAS: No masses. Visualized pancreatic duct normal caliber. LIVER: No masses. Echotexture normal. LIVER VASCULATURE: Normal directional flow of the main portal vein and hepatic veins. GALLBLADDER: No stones. Normal wall thickness. No pericholecystic fluid. ULTRASOUND-DETECTED TAYLOR'S SIGN: Negative. INTRAHEPATIC DUCTS AND COMMON DUCT: CBD and intrahepatic ducts normal caliber. No filling defects. INFERIOR VENA CAVA: Normal flow. AORTA: No aneurysm identified. RIGHT KIDNEY: Normal size. Normal echogenicity. No solid or suspicious masses. No hydronephros is. No calcifications. PERITONEAL AND RIGHT PLEURAL SPACE: No ascites or effusions. OTHER: No other significant findings. IMPRESSION: NO ACUTE FINDINGS. TECHNICAL DOCUMENTATION: JOB ID: [id number] [id number] 2010 [employer]- All Rights Reserved Reading location - IP/workstation name: [email or web address]
[2019-06-14 18:58] LABS: ALBUMIN 4.6 g/dL (3.5-5.0); ALKALINE PHOSPHATASE 83 U/L (38-126); ANION GAP 13 (5-19); ASPARTATE AMINO TRANSFERASE 42 U/L (14-36); BILIRUBIN,DIRECT 0.1 mg/dL (0.0-0.4); BILIRUBIN,TOTAL 0.5 mg/dL (0.2-1.3); BLOOD UREA NITROGEN 9 mg/dL (7-20); CALCIUM 9.4 mg/dL (8.4-10.2); CARBON DIOXIDE 25 mmol/L (22-30); CHLORIDE 101 mmol/L (98-107); GLUCOSE 97 mg/dL (75-110); TOTAL PROTEIN 8.1 g/dL (6.3-8.2)
[2019-06-14 19:00] LABS: APPEARANCE,URINE CLEAR; BILIRUBIN,URINE NEGATIVE (NEGATIVE); COLOR,URINE STRAW; GLUCOSE, URINE NEGATIVE (NEGATIVE); KETONES,URINE NEGATIVE (NEGATIVE); PROTEIN,URINE NEGATIVE (NEGATIVE); URINE SPECIFIC GRAVITY 1.003; UROBILINOGEN,URINE NEGATIVE mg/dL (<2.0)
[2019-06-14 19:27] VITALS: BP 137/56
--- NOTE | 2019-06-15 17:05 | EKG REPORT ---
SEVERITY:- ABNORMAL ECG - SINUS RHYTHM NONSPECIFIC T ABNORMALITIES, ANTERIOR LEADS : Confirmed by: Alexandre Linares MD 15-Jun-2019 17:04:43
== END 2019-06-14 19:35 | disposition home or self-care (01) ==
LOC: ER 17:33
DX: R10.13 Epigastric pain (principal); R07.9 Chest pain, unspecified; R11.0 Nausea; R19.7 Diarrhea, unspecified; Z79.3 Long term (current) use of hormonal contraceptives
CPT/HCPCS: 93005; 36415; 83690; 84703; 85025; 80053; 81001; 84484; 71046; 76705; 93010; J3490; 99284